=== PATIENT | female | born 1980 | race Caucasian/White ===

== ENCOUNTER 2018-06-19 13:07 | Emergency (ER) | payer SELFPAY ==
[~2018-06-19] VITALS: Ht 162.6 cm; Wt 80.0 kg
[2018-06-19] MEDS ORDERED: MORPHINE SULFATE 4 MG/ML CPJ (NOT FOR IM USE) IV STA (20:34)
[2018-06-19] MEDS ORDERED: ONDANSETRON HCL 4MG/2ML INJ IV STA (20:34)
[2018-06-19] MEDS ORDERED: SODIUM CHLORIDE 0.9% 1000ML BAG (SEPSIS BOLUS) IV ONE (20:45)
[2018-06-19] MEDS ORDERED: CEFTRIAXONE 1 G PREMIX 50 ML IV ONE (20:45)
[2018-06-19 20:55] LABS: EOSINOPHILS % 1.4 % (0.0-5.0); HEMATOCRIT. 41.8 % (36.0-48.0); HEMOGLOBIN. 14.3 g/dL (12.0-16.0); LYMPHOCYTES % 27.6 % (20.0-50.0); MEAN CORPUSCULAR HEMOGLOBIN 32.4 pg (28.0-32.0); MEAN CORPUSCULAR VOLUME 94.9 fL (81.0-99.0); MONOCYTES % 7.4 % (2.0-8.0); NEUTROPHILS % 62.6 % (40.0-76.0); PLATELET 343 x1000/uL (130-400); RED BLOOD CELL COUNT 4.41 mill/uL (4.2-5.4); RED CELL DISTRIBUTION WIDTH 13.6 % (11.6-14.6)
[2018-06-19 20:59] LABS: CHLORIDE 110 mEq/L (98-107)
[2018-06-19 21:00] LABS: PROTHROMBIN TIME 10.5 sec (9.6-11.0)
[2018-06-19] MEDS ORDERED: ALBUTEROL (0.083%) 2.5MG/3ML NEB ONE (21:15)
[2018-06-19] MEDS ORDERED: IPRATROPIUM BROMIDE (0.02%) 0.5MG/2.5ML NEB ONE (21:15)
[2018-06-20 01:25] VITALS: BP 109/68
== END 2018-06-20 02:00 | disposition home or self-care (01) ==
LOC: ER 13:40 → CANBEDREQ 06-20 03:47
DX: J20.9 Acute bronchitis, unspecified (principal); R00.0 Tachycardia, unspecified
CPT/HCPCS: 36415; 71045; 80053; 81025; 83605; 84145; 84484; 85025; 85610; 87040; 93005; 96365; 96375; 99284; J0696; J2270; J2405; J7030; J7040; J7611; Z7610